=== PATIENT | female | born 1990 | race Caucasian/White ===

== ENCOUNTER 2018-10-03 15:56 | Emergency (ER) | payer OTHER ==
--- NOTE | 2018-10-03 16:03 | PDOC ---
Rapid Medical Evaluation Chief Complaint: Sore Throat Time Seen by Provider: 10/03/18 16:01 Medical Evaluation: 10/03/18 16:02 I have performed a brief in person evaluation at triage on this patient. CC: Sore Throat HPI: Pt has had a sore throat x 1 week. PE: Skin: clear Lungs: clear Heart: RRR MS: Moves all extremities without difficulty Neuro: Alert and oriented Psych: Appropriate affect I have ordered: RBS Pt will proceed to [facility] for further evaluation. Discharge Disposition - Diagnosis Pharyngitis Qualifiers: Pharyngitis/tonsillitis etiology: other specified organisms Qualified Code(s): J02.8 - Acute pharyngitis due to other specified organisms - Referrals - Patient Instructions - Post Discharge Activity
[2018-10-03 16:05] VITALS: BP 111/43; PULSE 80; TEMP 98.4; BMI 21.3
--- NOTE | 2018-10-03 16:19 | PDOC ---
History of Present Illness <Shi Cornell - Last Filed: 10/03/18 16:39> - History of Present Illness Initial Comments: 10/03/18 16:16 27-year-old female without comorbidities presents for sore throat 6 days with associated vaginal itching she feels she may have a vaginal infection. She would like a female to perform pelvic examination. She has no systemic symptoms. <Saurabh Marcano - Last Filed: 10/03/18 18:33> - General Chief Complaint: Sore Throat Stated Complaint: SORE THROAT Time Seen by Provider: 10/03/18 16:01 Past History <Shi Cornell - Last Filed: 10/03/18 16:39> - Past Medical History COPD: No - Suicide/Smoking/Psychosocial Hx Smoking History: Former smoker Have you smoked in the past 12 months: No If you are a former smoker, when did you quit?: 1 month ago Information on smoking cessation initiated: No <Saurabh Marcano - Last Filed: 10/03/18 18:33> - Past Medical History Allergies/Adverse Reactions: Allergies Allergy/AdvReac Type Severity Reaction Status Date / Time No Known Allergies Allergy Verified 10/03/18 16:02 Home Medications: Ambulatory Orders Fluconazole [Diflucan] 150 mg PO ASDIR #2 tablet 10/03/18 Metronidazole 500 mg PO BID 7 Days #14 tablet 10/03/18 Review of Systems - Review of Systems Constitutional: No: Fever HEENTM: Yes: Throat Pain, Difficulty Swallowing <Saurabh Marcano - Last Filed: 10/03/18 18:33> *Physical Exam - Vital Signs Last Vital Signs Temp Pulse Resp BP Pulse Ox 98.4 F 80 18 111/43 L 100 10/03/18 16:02 10/03/18 16:02 10/03/18 16:02 10/03/18 16:02 10/03/18 16:02 - Physical Exam Female Pelvic Exam: positive: discharge (copious frosty malodorous discharge noted, + labia erythema as well, no CMT or adnexal tenderness. , Pelvic done by Shi Cornell) <Shi Cornell - Last Filed: 10/03/18 16:39> - Vital Signs Last Vital Signs Temp Pulse Resp BP Pulse Ox 98.4 F 80 18 111/43 L 100 10/03/18 16:02 10/03/18 16:02 10/03/18 16:02 10/03/18 16:02 10/03/18 16:02 - Physical Exam Comments: 10/03/18 16:19 HEAD: NC/AT EYES: Conjuntiva clear Ears: Canals and TM's normal NOSE: No d/c THROAT: Moist mucous membrances, oral pharanx clear, uvula midline NECK: Supple without adenopathy CARDIAC: S1 S2 LUNGS: CTA Full and Equal breath sounds ABDOMEN: Soft NT ND MS: Full ROM in all joints without edema NEUROLOGIC: No gross sensory or motor deficits, NVID SKIN: Normal color and temperature no lesions or rashes <Saurabh Marcano - Last Filed: 10/03/18 18:33> Medical Decision Making - Medical Decision Making 10/03/18 18:31 Questionable UA, no urinary symptoms. Diagnosis of BV and yeast infection. We' ll treat for that follow-up with [facility] culture sent <Saurabh Marcano - Last Filed: 10/03/18 18:33> *DC/Admit/Observation/Transfer <Shi Cornell - Last Filed: 10/03/18 16:39> - Discharge Dispostion Decision to Admit order: No <Saurabh Marcano - Last Filed: 10/03/18 18:33> Diagnosis at time of Disposition: Viral pharyngitis, Bacterial vaginitis, Yeast infection of the vagina Diagnosis at time of Disposition: (Ruled Out): Pharyngitis - Discharge Dispostion Disposition: HOME Condition at time of disposition: Stable - Prescriptions Prescriptions: Fluconazole [Diflucan] 150 mg PO ASDIR #2 tablet Metronidazole 500 mg PO BID 7 Days #14 tablet - Referrals Referrals: Gordy Jack MD [Staff Physician] - - Patient Instructions Printed Discharge Instructions: Viral Pharyngitis, DI for Viral Pharyngitis, Bacterial Vaginosis, DI for Bacterial Vaginosis, Vaginal Yeast Infection, DI for Vaginal Yeast Infection Additional Instructions: Please use the medication and take the antibiotics as directed. Return to the emergency room for worsening symptoms and follow-up with [facility] for further evaluation and treatment options. Warm salt water gargles for your sore throat your rapid strep was negative today however a culture was sent. Should you require antibiotics we will call you. Tylenol and Motrin as directed for pain. test today was negative.
[2018-10-03 17:45] LABS: EPI CELLS 21.2 /HPF (0-5/HPF); URINE APPEARANCE CLEAR; URINE BACTERIA 88.4 /hpf (NEGATIVE); URINE BILIRUBIN NEGATIVE (NEGATIVE); URINE CASTS 24 /lpf (0-8); URINE COLOR YELLOW; URINE GLUCOSE (UA) NEGATIVE (NEGATIVE); URINE KETONE NEGATIVE (NEGATIVE); URINE LEUK ESTERASE 3+ (NEGATIVE); URINE NITRITE NEGATIVE (NEGATIVE); URINE PROTEIN NEGATIVE (NEGATIVE); URINE RBC 2 /hpf (0-4); URINE UROBILINOGEN 0.2 mg/dL (0.2-1.0); URINE WBC 7 /hpf (0-5)
[2018-10-03 18:04] LABS: HCG,QUALITATIVE URINE Negative
== END 2018-10-03 18:38 | disposition home or self-care (01) ==
LOC: JERFT 15:56
DX: J02.9 Acute pharyngitis, unspecified (principal); B37.3 Candidiasis of vulva and vagina; N76.0 Acute vaginitis; B96.89 Other specified bacterial agents as the cause of diseases classified elsewhere
CPT/HCPCS: 36415; 81003; 84703; 87070; 87077; 87086; 87186; 87491; 87591; 87880; 99281-25